=== PATIENT | female | born 1975 | race Two or more races ===

== ENCOUNTER → 2019-03-28 | Outpatient (CLI) | payer BC ==
[~2019-03-28] MED LIST: CHOL100013 PO; HYDR-2761 PO; INSU100V5 IJ; IOHEXOL 240 MG/ML 50ML VIAL. PO ONE; IOHEXOL 300 MG/ML 100ML VIAL. IV ONE; METF850T8 PO; NPH,100V SQ
[2019-03-28 09:18] LABS: CREATININE 0.6 mg/dL (0.6-1.0); GFR 107.6
--- NOTE | 2019-03-28 10:52 | RAD ---
EXAM: CT Abdomen and Pelvis with IV contrast CLINICAL HISTORY: ventral abdominal hernia. COMPARISON: None TECHNIQUE: Helical CT of the abdomen and pelvis was performed following the administration of intravenous contrast. Axial, coronal and sagittal reformatted images were generated. PQRS compliance statement - One or more of the following individualized dose reduction techniques were utilized for this study: 1. Automated exposure control 2. Adjustment of the mA and/or kV according to patient size 3. Use of iterative reconstruction technique FINDINGS: Lower chest: Lung bases are clear. Linear opacities in the lungs likely scarring/atelectasis. Heart is not enlarged. No pericardial effusion. Abdomen and Pelvis: No focal liver lesion. Focal low-attenuation along the falciform ligament likely focal fatty infiltration. Gallstones are seen within the gallbladder. No biliary ductal dilatation. No gallbladder wall thickening or pericholecystic fluid. Spleen is unremarkable. Adrenal glands are normal. Pancreas is unremarkable. Symmetric nephrograms. No focal renal lesion. No hydronephrosis. Moderate colonic stool content is seen. No small or large bowel dilatation. Moderate sized fat-containing periumbilical ventral abdominal hernia is seen this has a relatively broad base measuring approximately 1.1 cm in transverse dimension. No associated inflammatory change or fluid is seen. Appendix is normal. No abdominal or pelvic lymphadenopathy. No abdominal or pelvic ascites. Bones: Degenerative changes of the spine are seen. IMPRESSION: 1. Moderate fat-containing periumbilical ventral abdominal hernia without associated inflammatory change or fluid. 2. Cholelithiasis without evidence for acute cholecystitis 3. Appendix is normal. 4. Moderate colonic stool content. No evidence for bowel obstruction. Electronically signed by: Kilo Lau MD (03/28/2019 10:49 AM) [id number]
== END | disposition home or self-care (01) ==
LOC: CT 08:36
PROVIDERS: ATTEND Surgery
DX: K43.9 Ventral hernia without obstruction or gangrene (principal); K80.20 Calculus of gallbladder without cholecystitis without obstruction; M47.819 Spondylosis without myelopathy or radiculopathy, site unspecified; R91.8 Other nonspecific abnormal finding of lung field
CPT/HCPCS: 36415; 74177; 82565; 84520; Q9966; Q9967

== ENCOUNTER 2019-03-30 06:36 | Day surgery (SDC) | payer BC ==
[~2019-03-30] VITALS: Ht 152.4 cm; Wt 74.8 kg
[~2019-03-30 06:36] MED LIST changes: +ACETAMINOPHEN 500 MG TABLET PO ONE; +BUPIVACAINE-EPI 0.25%-1:200000 MPF 30 ML VIAL. ONE; -CHOL100013 PO; -HYDR-2761 PO; -INSU100V5 IJ; -IOHEXOL 240 MG/ML 50ML VIAL. PO ONE; -IOHEXOL 300 MG/ML 100ML VIAL. IV ONE; -METF850T8 PO; -NPH,100V SQ
[2019-03-30] MEDS ORDERED: IV RINGERS,LACTATED 1000ML 1,000 ML IV SCH (07:00)
[2019-03-30] MEDS ORDERED: fentaNYL PF VIAL 100 MCG/2 ML VIAL IV PRN ×2 (07:00)
[2019-03-30] MEDS ORDERED: ONDANSETRON PF 4 MG/2 ML VIAL. IV PRN (07:00)
[2019-03-30] MEDS ORDERED: HYDROmorphone 2 MG/ML VIAL IV PRN (07:00)
[2019-03-30] MEDS ORDERED: PROCHLORPERAZINE 10 MG/2 ML VIAL. IV PRN (07:00)
[2019-03-30] MEDS ORDERED: MORPHINE SULFATE 2 MG/ML VIAL. IV PRN (07:00)
[2019-03-30] MEDS ORDERED: NPH,100V SQ (07:04)
[2019-03-30] MEDS ORDERED: METF850T8 PO (07:05)
[2019-03-30] MEDS ORDERED: CHOL100013 PO (07:06)
[2019-03-30] MEDS ORDERED: INSU100V5 IJ (07:15)
[2019-03-30] MEDS ORDERED: ONDANSETRON PF 4 MG/2 ML VIAL. ONE ×2 (08:28)
[2019-03-30] MEDS ORDERED: PROPOFOL 20 ML IV ONE (08:28)
[2019-03-30] MEDS ORDERED: LIDOCAINE 2% PF 5 ML VIAL. ONE (08:29)
[2019-03-30] MEDS ORDERED: fentaNYL PF VIAL 100 MCG/2 ML VIAL ONE ×3 (08:29→10:12)
[2019-03-30] MEDS ORDERED: ROCURONIUM 50 MG/5 ML VIAL. ONE (08:29)
[2019-03-30] MEDS ORDERED: NEOSTIGMINE METHYLSULFATE 5 MG/5 ML SYRINGE. ONE (08:59)
[2019-03-30] MEDS ORDERED: GLYCOPYRROLATE 1 MG/5 ML VIAL. ONE (08:59)
[2019-03-30] MEDS ORDERED: SEVOFLURANE 61 TO 120 MINUTES. IH ONE (09:05)
[2019-03-30 09:07] LABS: U PREG PATIENT NEGATIVE (NEG)
--- NOTE | 2019-03-30 09:46 | PDOC4 ---
Operative Note Operative Note Date: 03/30/2019 Preoperative diagnosis: Ventral hernia Postoperative diagnosis: Same Procedure: Robotic-assisted laparoscopic ventral hernia repair with mesh Surgeon: Bryce Specimen: None Dictation: Patient is a 44-year-old female who's had a bulge above her umbilicus and pain for several years over the last several months she states it is got much worse procedure of robotic-assisted laparoscopic ventral hernia repair with mesh was explained to the patient in detail RISKS benefits were also discussed including bleeding infection injury to intra-abdominal contents possibly necessitating further or open operations alternatives to this procedure also discussed with the patient is seemed to understand gave both verbal and written consent to have the procedure performed. Patient was taken to the operating room placed in supine position general anesthesia was initiated once patient was sleep and intubated her abdomen was prepped and draped usual sterile fashion using ChloraPrep and area in the left upper quadrant was injected with quarter percent Marcaine with epinephrine incision was made with 11 blade scalpel and a 5 mm Visiport was placed under direct visualization into the abdomen creating pneumoperitoneum once this complete 5 mm port was placed and the abdomen was visualized there was quite a few adhesions to the anterior abdominal wall at the place of the hernia with some incarcerated omentum a 8mm da Romelia port was placed in the left lower quadrant 8mm da Romelia port was placed in the left mid abdomen and an 8mm da Romelia port was placed in the left upper abdomen all under direct visualization. The da Romelia robot was then brought in and docked all port sites surgeon went to the robotic console using a grasper and Endo Alex scissors the adhesions were taken down with blunt and sharp dissection reducing the omentum from the hernia. The hernia defect was then closed with a running 20V LOC nonabsorbable suture. The repair was then covered with a ventral light ST mesh 8 cm diameter this was sewn in place with 20V LOC absorbable suture. This point the da Romelia robot was undocked from all ports all ports removed the pneumoperitoneum was reduced all port sites were closed for septic and a Monocryl Mastisol Steri-Strips and island dressings were applied. Patient was awakened and extubated in the operating room taken to recovery in stable condition all sponge instrument needle counts listed as correct estimated blood loss 5 mL XI AVILA MD March 30, 2019 09:46
--- NOTE | 2019-03-30 09:48 | DISCH ---
DISCHARGE INSTRUCTIONS Condition on Discharge Condition on Discharge: Stable Activity After Discharge Activity Instructions for Disc: Avoid exertion Other activity instructions: no lifting more than 20 pounds for 2 weeks Diet after Discharge Diet after Discharge: Regular Wound Incision Care Other wound/incision instructi: Alyssa shower in 24 hours Contacting the [facility] after DC Call your doctor for: If your condition worsens Follow-Up Follow up with: Dr. Avila in 2 weeks XI AVILA MD March 30, 2019 09:48
[2019-03-30] MEDS ORDERED: HYDR-2761 PO (10:13)
[2019-03-30] MEDS ORDERED: HYDROcodone/APAP 5/325MG 1 TAB TABLET PO ONE ×2 (10:15)
[2019-03-30] MEDS ORDERED: INSULIN LISPRO 100 UNIT/ML 3ML VIAL. SQ ONE (10:15)
[2019-03-30 11:30] VITALS: BP 108/60
== END 2019-03-30 11:30 | disposition home or self-care (01) ==
LOC: SURG 06:36
PROVIDERS: ATTEND Surgery
DX: K43.6 Other and unspecified ventral hernia with obstruction, without gangrene (principal); E11.9 Type 2 diabetes mellitus without complications; D64.9 Anemia, unspecified; Z98.51 Tubal ligation status; Z79.84 Long term (current) use of oral hypoglycemic drugs; Z79.899 Other long term (current) drug therapy
CPT/HCPCS: 49653; 81025; 82962; C1781; J0696; J2001; J2405; J2704; J2710; J3010; J3490; J7120; S2900